=== PATIENT | female | born 1985 | race Caucasian/White ===

== ENCOUNTER 2017-02-16 10:58 | Day surgery (SDC) | payer OTHER ==
[~2017-02-16 10:58] MED LIST: LACTATED RINGERS 1,000 ML IV SCH; LIDOCAINE 1% 20 ML VIAL (10MG/ML) FOR IV START INTRADERMA PRN
[2017-02-16 12:07] VITALS: TEMP 98
[2017-02-16] MEDS ORDERED: GLYCOPYRROLATE 0.2 MG/ML 2 ML VIAL ONE (12:57)
[2017-02-16] MEDS ORDERED: LIDOCAINE 1% INJ 10MG/ML (20 ML MDV) ONE (12:57)
[2017-02-16] MEDS ORDERED: PROPOFOL 10 MG/ML 20 ML VIAL IV ONE (12:57)
--- NOTE | 2017-02-16 13:20 | P.PCN ---
Date of Procedure: 02/16/17 Preoperative Diagnosis: Postoperative Diagnosis: Procedure(s) Performed: Procedure: Esophagogastroduodenoscopy and biopsy. Preoperative diagnosis: Epigastric pain. Postoperative diagnosis: 1. Small sliding hiatal hernia with no obvious esophagitis or complicated reflux disease. 2. Mild antral gastritis. Preparation and sedation: Was provided by anesthesia. Brief clinical history: The patient is a 31-year-old female who has been having issues with epigastric pain for the last 3 weeks or so. She was in the emergency room for evaluation for this pain with no definite etiology. The pain is apparently is intermittent and could last for few hours at a time. No nausea, vomiting or bleeding. Her ultrasound did not show gallbladder pathology. She is referred for this evaluation for possible peptic ulcer disease. Procedure: With the patient on her left lateral decubitus position and after informed consent and adequate sedation, I passed the Olympus-GIF 160 video upper endoscope through the cricopharyngeus down the esophagus. GE junction was around 39 cm from the incisors and there was a small sliding hiatal hernia measuring around 1-1/2 cm. The esophagus did not show any obvious esophagitis, strictures or Ronquillo's esophagus. The endoscope was then passed into the stomach which was insufflated with air and inspected in detail including the retroflex view in the cardia. There was some mottling and erythema in the antrum but no ulcers or erosions. Pyloric channel, duodenal bulb, post bulbar area and descending duodenum appeared within normal limits. Because of her symptoms, I obtained biopsies from the duodenum, antrum and esophagus then the endoscope was withdrawn. The patient tolerated the procedure well. Plan: The patient was reassured. Will await biopsy results. She will follow-up with you as planned and further plans based on her course and biopsy results. Implants: Indications for Procedure: Operative Findings: Description of Procedure:
[2017-02-16 13:46] VITALS: BP 119/70; PULSE 70; RESP 18
== END 2017-02-16 14:09 | disposition home or self-care (01) ==
LOC: ORWHC2ENDO 10:58
DX: K29.50 Unspecified chronic gastritis without bleeding (principal); K21.0 Gastro-esophageal reflux disease with esophagitis; K20.0 Eosinophilic esophagitis; K44.9 Diaphragmatic hernia without obstruction or gangrene; E78.5 Hyperlipidemia, unspecified; F17.200 Nicotine dependence, unspecified, uncomplicated; Z79.899 Other long term (current) drug therapy
CPT/HCPCS: 81025; 88305; 88342; 43239; J2001; J2704